=== PATIENT | male | born 1995 | race Caucasian/White ===

== ENCOUNTER 2016-05-01 20:19 | Emergency (ER) | payer BC ==
[~2016-05-01] VITALS: Ht 185.4 cm; Wt 81.6 kg
[2016-05-01 20:26] VITALS: Ht 185.4 cm; Wt 81.6 kg
[2016-05-01] MEDS ORDERED: ACETAMINOPHEN 500 MG TAB PO STA (22:02)
[2016-05-01] MEDS ORDERED: ONDANSETRON INJ 2 MG/ML 2 ML VIAL IV STA (22:28)
[2016-05-01] MEDS ORDERED: IBUPROFEN 800 MG TAB PO STA (22:28)
[2016-05-01] MEDS ORDERED: SODIUM CHLORIDE 0.9% 1000ML 2,000 ML IV STA (22:28)
[2016-05-01] MEDS ORDERED: IBUPROFEN 600 MG TAB ONE (22:53)
[2016-05-01] MEDS ORDERED: ACET-1311 PO (22:53)
[2016-05-01] MEDS ORDERED: IBUPROFEN 200 MG TAB ONE (22:53)
[2016-05-01 23:11] LABS: BASO % 0.5 %; BASO ABS # 0.03 K/uL (0-0.2); COMPLETE YES; EOS % 0.3 %; HEMATOCRIT 42.5 % (42-52); IG% 0.2 %; LYMPH % 14.7 %; LYMPH ABS # 0.94 K/uL (1.2-3.4); MEAN CELL VOLUME 84.2 fL (80-100); MEAN CORPUSCULAR HEMOGLOBIN 30.3 pg (25-34); MEAN PLATELET VOLUME 12.4 fL (7.4-10.4); MONO % 11.7 %; NEUT % 72.6 %; PLATELET COUNT 149 K/uL (130-400); RED BLOOD COUNT 5.05 M/uL (4.7-6.1); WHITE BLOOD COUNT 6.39 K/uL (4.8-10.8)
[2016-05-01 23:29] LABS: BUN/CREATININE RATIO 8.4 (10-20); CALCIUM 8.7 mg/dl (8.5-10.1); CREATININE 1.2 mg/dl (0.60-1.40); POTASSIUM 3.8 mmol/L (3.5-5.1)
[2016-05-01] MEDS ORDERED: ALBUTEROL HFA 8 GM INHALER INH STA (23:42)
[2016-05-01] MEDS ORDERED: DOXYCYCLINE HYCLATE 100 MG CAP PO ONE (23:45)
[2016-05-01 23:53] VITALS: TEMP 36.9
[2016-05-02] MEDS ORDERED: DOXY100C2 PO (00:31)
[2016-05-02 00:42] VITALS: BP 114/54; PULSE 69; O2SAT 96
--- NOTE | 2016-05-02 04:37 | EMERGENCY ROOM VISIT NOTE ---
History First contact with patient: 22:18 Chief Complaint: COUGH Stated Complaint: COUGHING UP BLOOD, HEADACHE, CHILLS, SWEATING Nursing Triage Summary: cough chills started saturday with general malaise History of Present Illness The patient is a 20 year old male who presents to the Emergency Room with complaints of fever, chills, cough, congestion, myalgias and arthralgias for the past 3 days. Patient states a few times he coughed up phlegm he had some red streakiness to it. No clots of blood or a cupful of blood. No risk factors for TB. No recent travel. No night sweats or weight loss. Patient denies chest pain, dyspnea, abdominal pain, vomiting, diarrhea, neck stiffness, sore throat. Review of Systems See HPI for pertinent positives & negatives. A total of 10 systems reviewed and were otherwise negative. Past Medical/Surgical History None Social History Smoking Status: Never Smoker Smokeless Tobacco Use: No Alcohol Use: occasionally Drug Use: none Occupation Status: [employer] Current/Historical Medications Scheduled Doxycycline Hyclate (Vibramycin), 100 MG PO BID Allergies Coded Allergies: No Known Allergies (Unverified , 05/01/16) Physical Exam Vital Signs Date Time Temp Pulse Resp B/P Pulse Ox O2 Delivery O2 Flow Rate FiO2 05/02/16 00:42 69 20 114/54 96 05/02/16 00:24 69 20 114/54 96 Room Air 05/01/16 23:53 36.9 05/01/16 23:02 39.0 75 16 120/54 97 Room Air 05/01/16 21:55 99 Room Air 05/01/16 20:26 39.5 99 16 140/77 96 Room Air Pain Rating (0-10): 0 Physical Exam VITALS: Vitals are noted on the nurse's note and reviewed by myself. Vital signs b GENERAL: Pleasant male mildly ill-appearing, in no acute distress, nondiaphoretic, well-developed well-nourished. SKIN: The skin was without rashes, erythema, edema, or bruising. There is no tenting of the skin. Capillary reflex less than 2 seconds. HEAD: Normocephalic atraumatic. EARS: External auditory canals clear, tympanic membranes pearly thomason without erythema or effusion bilaterally. EYES: Pupils equal round and reactive to light and accommodation. Conjunctivae without injection, sclerae without icterus. Extraocular movements intact. NOSE: Patent, turbinates without inflammation or discharge. No sinus tenderness. MOUTH: Mucous membranes mild dry. Pharynx without erythema or exudate. Uvula midline. Airway patent. Tongue does not deviate. NECK: Supple without nuchal rigidity. No lymphadenopathy. No thyromegaly. Cervical spine is nontender. No JVD. HEART: Regular rate and rhythm without murmurs gallops or rubs. LUNGS: Clear to auscultation bilaterally without wheezes, rales or rhonchi. No dullness to percussion. No retractions or accessory muscle use. ABDOMEN: Positive bowel sounds x 4. Normal tympanic percussion. Soft, nontender, without masses or organomegaly. Dobson sign negative. No guarding or rebound tenderness. MUSCULOSKELETAL: No muscle atrophy, erythema, or edema noted. NEURO: Patient was alert and oriented to person place and time. Normal sensation to light and sharp touch. No focal neurological deficits. Medical Decision & Procedures Laboratory Results 05/01/16 22:50 Red Blood Count 5.05, Mean Corpuscular Volume 84.2, Mean Corpuscular Hemoglobin 30.3, Mean Corpuscular Hemoglobin Concent 36.0, Mean Platelet Volume 12.4, Neutrophils (%) (Auto) 72.6, Lymphocytes (%) (Auto) 14.7, Monocytes (%) (Auto) 11.7, Eosinophils (%) (Auto) 0.3, Basophils (%) (Auto) 0.5, Neutrophils # (Auto ) 4.64, Lymphocytes # (Auto) 0.94, Monocytes # (Auto) 0.75, Eosinophils # (Auto ) 0.02, Basophils # (Auto) 0.03 05/01/16 22:50 Test 05/01/16 22:00 05/01/16 22:50 Influenza Type A Antigen Neg for Influ A (NEG) Influenza Type B Antigen Neg for Influ B (NEG) White Blood Count 6.39 K/uL (4.8-10.8) Red Blood Count 5.05 M/uL (4.7-6.1) Hemoglobin 15.3 g/dL (14.0-18.0) Hematocrit 42.5 % (42-52) Mean Corpuscular Volume 84.2 fL (80-100) Mean Corpuscular Hemoglobin 30.3 pg (25-34) Mean Corpuscular Hemoglobin Concent 36.0 g/dl (32-36) Platelet Count 149 K/uL (130-400) Mean Platelet Volume 12.4 fL (7.4-10.4) Neutrophils (%) (Auto) 72.6 % Lymphocytes (%) (Auto) 14.7 % Monocytes (%) (Auto) 11.7 % Eosinophils (%) (Auto) 0.3 % Basophils (%) (Auto) 0.5 % Neutrophils # (Auto) 4.64 K/uL (1.4-6.5) Lymphocytes # (Auto) 0.94 K/uL (1.2-3.4) Monocytes # (Auto) 0.75 K/uL (0.11-0.59) Eosinophils # (Auto) 0.02 K/uL (0-0.5) Basophils # (Auto) 0.03 K/uL (0-0.2) RDW Standard Deviation 39.2 fL (36.4-46.3) RDW Coefficient of Variation 13.0 % (11.5-14.5) Immature Granulocyte % (Auto) 0.2 % Immature Granulocyte # (Auto) 0.01 K/uL (0.00-0.02) Anion Gap 11.0 mmol/L (3-11) Est Creatinine Clear Calc Drug Dose 110.0 ml/min Estimated GFR () 99.6 Estimated GFR (Non- 85.9 BUN/Creatinine Ratio 8.4 (10-20) Calcium Level 8.7 mg/dl (8.5-10.1) Medications Administered Medications (Trade) Dose Ordered Sig/Triston Route Start Time Stop Time Status Last Admin Dose Admin Acetaminophen 1000 mg 1,000 mg NOW STAT PO 05/01/16 22:02 05/01/16 22:03 DC 05/01/16 22:06 1,000 MG Sodium Chloride (Nss 1000ml) 2,000 ml @ 999 mls/hr Q2H1M STAT IV 05/01/16 22:28 05/02/16 00:28 DC 05/01/16 22:58 999 MLS/HR Ondansetron HCl (Zofran Inj) 4 mg NOW STAT IV 05/01/16 22:28 05/01/16 22:31 DC 05/01/16 23:01 4 MG Ibuprofen (Motrin Tab) 600 mg STK-MED ONCE .ROUTE 05/01/16 22:53 05/01/16 22:55 DC 05/01/16 23:02 600 MG Ibuprofen (Advil Tab) 200 mg STK-MED ONCE .ROUTE 05/01/16 22:53 05/01/16 22:55 DC 05/01/16 23:01 200 MG Albuterol (Ventolin Hfa Inhaler) 2 puffs ONE STAT INH 05/01/16 23:42 05/01/16 23:43 DC 05/01/16 23:49 60 PUFFS Doxycycline Hyclate (Vibramycin Cap) 100 mg ONE ONCE PO 05/01/16 23:45 05/01/16 23:46 DC 05/01/16 23:49 100 MG ED Course Prior records/ancillary studies reviewed. Triage Nursing notes reviewed. The patient's history was concerning for fever. Differential diagnosis: Etiologies such as viral syndrome, otitis, pharyngitis, pneumonia, influenza, meningitis, sepsis, bacteremia, as well as others were entertained. Physical examination: Patient was alert, tolerating fluids ER treatment provided: IV fluids, Tylenol, Motrin, doxycycline On reassessment the patient felt better. Diagnostics interpreted by me: The labs revealed negative influenza. No leukocytosis Imaging studies: Chest x-ray with no acute consolidation or pneumothorax per my interpretation This appears to be consistent with bronchitis with fever. Patient symptoms have been present for 3 days. He has a productive cough and was moderately ill- appearing. He was started on antibiotics for possible developing pneumonia. Patient was advised to rest, stay well-hydrated and follow-up with health services in a few days or here in the ER sooner for chest pain, difficulty breathing, high fevers, neck stiffness, worsening signs or symptoms or as needed. By the evaluation outlined above emergent etiologies such as otitis, pharyngitis, meningitis, urinary tract infection, sepsis, bacteremia, as well as others were deemed relatively unlikely. The pt informed about the findings as listed above. All questions were answered and pleased with the treatment. Return instructions were outlined and the patient was discharged in stable condition. Outpatient prescription management: Doxycycline Referral: The patient was referred back to their primary care physician for follow-up in 2 to 3 days for a recheck of the current condition. Case reviewed with my attending Medical Decision As above Impression Primary Impression: Acute bronchitis Departure Information Dispostion Home / Self-Care Condition GOOD Prescriptions Doxycycline Hyclate (VIBRAMYCIN) 100 Mg Cap 100 MG PO BID for 7 Days, #14 CAP Prov: Amanda Parra PA-C 05/02/16 Forms HOME CARE DOCUMENTATION FORM, School Instructions, Return To School: 3 days IMPORTANT VISIT INFORMATION Patient Instructions Fever - [facility], Replaced By [facility] Additional Instructions Doxycycline 100mg: Take one pill twice daily for seven days for your infection. Take with food, but avoid dairy. Avoid prolonged sun exposure since this medication makes you temporarily more susceptible to sunburns. All antibiotics can cause diarrhea. If this occurs and you feel worse or it does not resolve in 1-2 days follow up with your doctor or return to the Emergency Department as this could be signs of serious underlying problems. Any medication can cause an allergic reaction, stop the pills immediately and return to the ER for rash, hives, breathing difficulties, or swelling. Albuterol Inhaler: Take 2 puffs four times daily for seven days, then as needed. Acetaminophen(Tylenol) may be used for fever or pain. Use 1000mg every six hours as needed. Avoid using more than 3000mg in a 24 hour period. AND/OR Ibuprofen(Motrin, Advil) may be used for fever or pain. Use 600mg every six hours as needed. Take with food. Avoid using more than 2400mg in a 24 hour period. Do not use 2400mg per day for more than three consecutive days without physician direction. Prolonged inappropriate use can lead to stomach upset or ulcers. Controlling your fever with Tylenol and Ibuprofen as above will make you feel better. Rest and drink plenty of fluids. Avoid strenuous activity until your symptoms resolve and your breathing returns to normal. Continue current medications. Return to the ER for chest pain, difficulty breathing, persistent fevers, vomiting, worsening of your condition, or as needed. Follow-up with family care in 2-3 days. School Instructions Return To School: 3 days Problem Qualifiers Primary Impression: Acute bronchitis Bronchitis organism: unspecified organism Qualified Codes: J20.9 - Acute bronchitis, unspecified
--- NOTE | 2016-05-02 06:36 | DIAGNOSTIC IMAGING REPORT ---
CHEST 2 VIEWS ROUTINE CLINICAL HISTORY: cough/hemoptysis COMPARISON STUDY: No previous studies for comparison. FINDINGS: The cardiac and mediastinal contours are normal. There is no evidence of focal pulmonary consolidation. There is no evidence of failure. No pleural effusions are visualized.[ IMPRESSION: No active disease in the chest. Electronically signed by: Lauri Hinojosa M.D. 05/02/2016 6:35 AM Dictated Date/Time: 05/02/2016 6:34 AM
== END 2016-05-02 00:43 | disposition home or self-care (01) ==
LOC: C.EDB 20:21
DX: J20.9 Acute bronchitis, unspecified (principal)